=== PATIENT | female | born 1990 | race Caucasian/White ===

== ENCOUNTER 2023-04-01 21:28 | Inpatient (IN) | payer MEDICAID ==
[~2023-04-01] VITALS: Ht 162.6 cm; Wt 54.9 kg
[2023-04-02] MEDS ORDERED: HALOPERIDOL 5 MG TABLET PO PRN (00:15)
[2023-04-02 00:20] VITALS: BP 119/79; PULSE 79; RESP 18; TEMP 97.6; O2SAT 96
[2023-04-02] MEDS: ZOLPIDEM TARTRATE 10 MG TABLET PO PRN ×2 (00:43→20:43)
[2023-04-02] MEDS ORDERED: POTASSIUM CHLORIDE 20 MEQ ER TABLET PO ONE (07:15)
[2023-04-02] MEDS: LORazepam 2 MG TABLET PO PRN (08:23)
[2023-04-02 08:30] VITALS: BP 118/71; PULSE 85; RESP 17; TEMP 98; O2SAT 98
[2023-04-02] MEDS ORDERED: ACETAMINOPHEN 325 MG TABLET PO PRN (08:45)
[2023-04-02] MEDS ORDERED: NICOTINE 14 MG/24 HOUR PATCH TD PRN (08:45)
[2023-04-02] MEDS ORDERED: ONDANSETRON HCL 4 MG TABLET PO PRN (08:45)
[2023-04-02] MEDS ORDERED: ALBUTEROL SULFATE HFA 90 MCG/PUFF 8 GM INHALER IH PRN (08:45)
[2023-04-02] MEDS ORDERED: MAGNESIUM HYDROXIDE SUSPENSION 30 ML UDCUP PO PRN (08:45)
[2023-04-02] MEDS ORDERED: PETROLATUM,WHITE 28 GM JELLY TP PRN (08:45)
[2023-04-02] MEDS ORDERED: LOPERAMIDE HCL 2 MG CAPSULE PO PRN (08:45)
[2023-04-02] MEDS ORDERED: CloNIDine HCL 0.1 MG TABLET PO PRN (08:45)
[2023-04-02] MEDS ORDERED: GuaiFENesin/D-METHORPHAN [SUGAR-FREE] 200-20MG/10 ML SYRUP UDCUP PO PRN (08:45)
[2023-04-02] MEDS ORDERED: MAG HYDROX/AL HYDROX/SIMETH ES 30 ML SUSPENSION UDCUP PO PRN (08:45)
[2023-04-02] MEDS ORDERED: IBUPROFEN 400 MG TABLET PO PRN (08:45)
[2023-04-02] MEDS ORDERED: DOCUSATE SODIUM 100 MG CAPSULE PO PRN (08:45)
[2023-04-02] MEDS: FLUoxetine HCL 10 MG CAPSULE PO SCH (16:17)
[2023-04-02] MEDS: ARIPiprazole 5 MG TABLET PO SCH (16:17)
[2023-04-02 20:22] VITALS: BP 105/68; PULSE 78; RESP 18; TEMP 96.5; O2SAT 97
[2023-04-03 08:14] LABS: BASOPHILS % (AUTO) 0.6 % (0.0-2.0); EOSINOPHILS % (AUTO) 3.4 % (1.0-6.0); HEMATOCRIT 40.9 % (36-46); HEMOGLOBIN 13.5 g/dL (12.0-16.0); LYMPHOCYTES # (AUTO) 1.9 K/uL (1.0-4.8); LYMPHOCYTES % (AUTO) 35.2 % (22.0-44.0); MEAN CORPUSCULAR HEMOGLOBIN 29.5 pg (26.0-34.0); MEAN CORPUSCULAR HGB CONC 33.1 G/dL (31.0-37.0); MEAN CORPUSCULAR VOLUME 89 fL (80-100); MONOCYTES # (AUTO) 0.5 K/uL (0.1-1.0); MONOCYTES % (AUTO) 9.5 % (2.0-9.0); NEUTROPHILS # (AUTO) 2.8 K/uL (1.8-7.7); NEUTROPHILS % (AUTO) 51.3 % (40.0-70.0); PLATELET COUNT (AUTO) 268 K/uL (150-450); RED BLOOD CELL COUNT(AUTO) 4.59 MIL/uL (4.00-5.20); RED CELL DISTRIBUTION WIDTH 13.6 % (11.5-14.5)
[2023-04-03 08:38] LABS: ALANINE AMINOTRANSFERASE 9 U/L (12-78); ALBUMIN 3.5 g/dL (3.4-5.0); ALKALINE PHOSPHATASE 71 U/L (46-116); ANION GAP 7 mmol/L (8-16); ASPARTATE AMINOTRANSFERASE 12 U/L (15-37); BILIRUBIN,TOTAL 0.3 mg/dL (0.1-1.0); CALCIUM, TOTAL 8.8 mg/dL (8.8-10.5); CARBON DIOXIDE 28 mmol/L (22-29); CHLORIDE 102 mmol/L (98-107); CHOL/HDL RATIO 2.4 (3.9-5.7); CHOLESTEROL 158 mg/dL (131-200); CREATININE 0.55 mg/dL (0.60-1.30); FREE T4 (FREE THYROXINE) 0.98 ng/dL (0.76-1.46); GLOMERULAR FILTR. RATE CALC > 60 mL/min (>60); GLUCOSE,RANDOM 91 mg/dL (70-110); HCG,QUANTITATIVE < 1 mIU/mL (0-6); HDL CHOLESTEROL 65 mg/dL (40-60); LDL CHOL (CALC.) 82 mg/dL (0-130); POTASSIUM 3.7 mmol/L (3.5-5.1); SODIUM SERUM 137 mmol/L (136-145); THYROID STIMULATING HORMONE 1.29 uIU/mL (0.36-3.74); TOTAL PROTEIN, SERUM 6.6 g/dL (6.4-8.2); TRIGLYCERIDES 53 mg/dL (15-150)
[2023-04-03] MEDS: ARIPiprazole 5 MG TABLET PO SCH (08:40)
[2023-04-03] MEDS: LORazepam 2 MG TABLET PO PRN (08:41)
[2023-04-03 08:48] LABS: APPEARANCE,URINE HAZY (CLEAR); BILIRUBIN,URINE NEGATIVE (NEGATIVE); GLUCOSE, URINE (UA) NEGATIVE (NEGATIVE); KETONES,URINE NEGATIVE (NEGATIVE); LEUKOCYTE ESTERASE ,URINE LARGE (NEGATIVE); NITRATE,URINE NEGATIVE (NEGATIVE); OCCULT BLOOD,URINE SMALL (NEGATIVE); PH,URINE 6.5 (5.0-8.0); PROTEIN,URINE NEGATIVE (NEGATIVE); SPECIFIC GRAVITIY, URINE 1.007 (1.003-1.030); UROBILINOGEN,URINE <=1.0 mg/dL (<=1.0)
[2023-04-03 08:49] LABS: AMPHET/METH SCREEN,URINE NEGATIVE (NEGATIVE); BARBITURATE SCREEN, URINE NEGATIVE (NEGATIVE); BENZODIAZEPINES SCREEN,URINE NEGATIVE (NEGATIVE); CANNABINOID SCREEN,URINE NEGATIVE (NEGATIVE); COCAINE SCREEN,URINE NEGATIVE (NEGATIVE); METHADONE SCREEN, URINE NEGATIVE (NEGATIVE); OPIATE SCREEN,URINE NEGATIVE (NEGATIVE); PHENCYCLIDINE SCREEN,URINE NEGATIVE (NEGATIVE)
[2023-04-03 08:56] VITALS: BP 105/60; PULSE 80; RESP 17; TEMP 98; O2SAT 98
[2023-04-03 09:09] LABS: BACTERIA,URINE Few /HPF (None Seen); RBC,URINE 0-2 /HPF (0-2); SQUAMOUS EPITHELIAL CELL,UR Few /LPF (None Seen)
[2023-04-03] MEDS: FLUoxetine HCL 10 MG CAPSULE PO SCH (12:37)
[2023-04-03] MEDS: CEPHALEXIN MONOHYDRATE 250 MG CAPSULE PO SCH ×2 (16:21→23:21)
[2023-04-03] MEDS: ZOLPIDEM TARTRATE 10 MG TABLET PO PRN (20:00)
[2023-04-03 20:30] VITALS: BP 110/70; PULSE 87; RESP 18; TEMP 98.1; O2SAT 97
[2023-04-04 03:06] LABS: HEPATITIS C AB (EIA) Non Reactive (Non Reactive)
[2023-04-04] MEDS: CEPHALEXIN MONOHYDRATE 250 MG CAPSULE PO SCH ×2 (08:11→16:04)
[2023-04-04] MEDS: FLUoxetine HCL 10 MG CAPSULE PO SCH (08:11)
[2023-04-04] MEDS: ARIPiprazole 5 MG TABLET PO SCH (08:11)
[2023-04-04 08:34] VITALS: BP 102/61; PULSE 77; RESP 18; TEMP 97.7; O2SAT 96
[2023-04-04] MEDS: LORazepam 2 MG TABLET PO PRN (18:04)
[2023-04-04] MEDS: ZOLPIDEM TARTRATE 10 MG TABLET PO PRN (20:45)
[2023-04-04 20:57] VITALS: BP 102/75; PULSE 87; RESP 17; TEMP 98.1; O2SAT 97
[2023-04-05] MEDS: CEPHALEXIN MONOHYDRATE 250 MG CAPSULE PO SCH ×3 (00:34→15:47)
[2023-04-05] MEDS: FLUoxetine HCL 10 MG CAPSULE PO SCH (08:06)
[2023-04-05] MEDS: ARIPiprazole 5 MG TABLET PO SCH (08:06)
[2023-04-05 08:31] VITALS: BP 119/71; PULSE 83; RESP 18; TEMP 97.8; O2SAT 100
[2023-04-05] MEDS ORDERED: ARIP5TAB37 PO ×2 (13:39→21:51)
[2023-04-05] MEDS ORDERED: FLUO10CA24 PO (13:40)
[2023-04-05] MEDS ORDERED: CEPH-556 PO ×2 (14:01→14:35)
[2023-04-05] MEDS ORDERED: PROZ10 PO (21:51)
== END 2023-04-05 18:30 | disposition home or self-care (01) | DRG 753 ==
LOC: B2S 23:46
PROVIDERS: ADMIT Psychiatry & Neurology Psychiatry; ATTEND Psychiatry & Neurology Psychiatry
DX: F31.4 Bipolar disorder, current episode depressed, severe, without psychotic features (principal); R45.851 Suicidal ideations; F10.10 Alcohol abuse, uncomplicated; F41.9 Anxiety disorder, unspecified; G47.00 Insomnia, unspecified; N39.0 Urinary tract infection, site not specified
CPT/HCPCS: 80053; 80061; 80307; 81001; 83036; 84436; 84439; 84443; 84702; 84703; 85025; 86803; 87086; 87186; 87340; G0480